=== PATIENT | male | born 1960 | race Caucasian/White ===

== ENCOUNTER 2025-05-21 09:18 | Day surgery (SDC) | payer OTHER ==
[2025-05-19 10:54] LABS: MEAN PLATELET VOLUME 8.2 FL (7.4-10.4); RED CELL DISTRIBUTION WIDTH 15.5 % (11.5-14.5)
[2025-05-19 11:06] LABS: APTT 29 SECONDS (22-32); CHOL/HDL RATIO 3.3 (0.00-4.99); CREATININE 0.81 MG/DL (0.60-1.10); INR 1.1 INR; LDL CHOLESTEROL 55 MG/DL (50-100); TOTAL CARBON DIOXIDE 24.8 MMOL/L (24-32); eGFR > 90 ML/MIN
[~2025-05-21] VITALS: Ht 177.8 cm; Wt 115.6 kg
[2025-05-21 09:43] VITALS: BP 128/85; PULSE 124; RESP 16; TEMP 98.1; O2SAT 97
[2025-05-21] MEDS ORDERED: normal saline 1000ml 1,000 ML IV SCH (09:45)
[2025-05-21] MEDS ORDERED: MIDAZolam 1mg/ml 10ml vial IV ONE (09:45)
[2025-05-21] MEDS ORDERED: fentaNYL/PF 50MCG/1 ML 2ML syringe IV ONE (09:45)
[2025-05-21] MEDS ORDERED: METO-411 PO (09:46)
[2025-05-21] MEDS ORDERED: APIX5TAB3 PO (09:46)
[2025-05-21] MEDS ORDERED: DILT360C52 PO (09:46)
[2025-05-21] MEDS ORDERED: AMIO200T72 PO (09:46)
[2025-05-21] MEDS ORDERED: ASPI-1397 PO (09:48)
[2025-05-21] MEDS ORDERED: METF-900 PO (09:48)
[2025-05-21] MEDS ORDERED: HYDR-3972 PO (09:48)
[2025-05-21] MEDS ORDERED: SIMV-42 PO (09:48)
[2025-05-21] MEDS ORDERED: TIRZ7.5P SQ (09:48)
[2025-05-21 10:45] VITALS: BP 128/85; PULSE 124; RESP 16; TEMP 98.1; O2SAT 97
[2025-05-21] MEDS ORDERED: fentaNYL/PF 50MCG/1 ML 2ML syringe ONE ×2 (12:01→12:25)
[2025-05-21] MEDS ORDERED: midazolam 1 mg/ML 2ml injection ONE ×3 (12:01→12:23)
[2025-05-21] MEDS ORDERED: atropine 0.1mg/ml 10ml syringe ONE (12:02)
[2025-05-21] MEDS ORDERED: amiodarone 50MG/ML inj IV ONE (12:02)
[2025-05-21 12:40] VITALS: BP 99/55; PULSE 64; RESP 16; O2SAT 96
[2025-05-21 12:50] VITALS: BP 92/55; PULSE 67; RESP 16; O2SAT 95
[2025-05-21 13:01] VITALS: BP 106/67; PULSE 68; RESP 16; O2SAT 96
--- NOTE | 2025-05-21 13:07 | PROCEDURE NOTE CC ---
Procedure Note Providers to CC CC: BRENDA DONG MD ~ Description Planned Procedure Cardioversion Indications Symptomatic Atrial Fibrillation Post Operative Dx: Same Type of Anesthesia Moderate Sedation. Description It was confirmed that patient has been taking oral anticoagulation without interruption for at least 4 weeks. The appropriate time-out procedure was performed including proper identification of the patient, physician, procedure, documentation, and there were no safety issues identified. The patient participated actively in this. After sedation was achieved, the patient was placed in the supine position and hands free patches were placed on their chest in the AP-lateral position. 1 synchronized cardioversion was provided at 200 Joules with conversion to normal sinus rhythm. This was confirmed on EKG. Complication: None The patient tolerated the procedure well without complications. CAMILLA DONG MD May 21, 2025 13:07
[2025-05-21 13:12] VITALS: BP 100/67; PULSE 67; RESP 16; O2SAT 96
--- NOTE | 2025-05-21 13:17 | ELECTROCARDIOGRAPH REPORT ---
[facility] Test Date: 2025-05-21 Test Time: 13:11:10 Pat Name: MAYRA KNAPP Department: [facility] Patient ID: [id number] Room: Gender: M Manager Zone: MANDY : 1960 Requested By: CAMILLA ZAMORA Order Number: [id number] Reading MD: Dr. Garcia Zamora Measurements Intervals [place] Rate: 64 P: 6 WV: 163 QRS: 38 QRSD: 104 T: 55 QT: 442 QTc: 456 Interpretive Statements Sinus rhythm Probable left atrial enlargement Left ventricular hypertrophy Electronically Signed On 05-21-2025 15:28:[address] Garcia Zamora Please click the below link to view image of tracing.
== END 2025-05-21 14:10 | disposition home or self-care (01) ==
LOC: SSTAY O 09:18
PROVIDERS: ATTEND Student in an Organized Health Care Education/Training Program
DX: I48.91 Unspecified atrial fibrillation (principal); I48.92 Unspecified atrial flutter; I11.9 Hypertensive heart disease without heart failure; E11.9 Type 2 diabetes mellitus without complications; E78.00 Pure hypercholesterolemia, unspecified; G47.33 Obstructive sleep apnea (adult) (pediatric)
CPT/HCPCS: 36415; 80048; 80061; 82948; 85025; 85610; 85730; 92960; 93005; J2250; J3010; J7030; 99152; J0282; J0461